=== PATIENT | female | born 1990 | race Caucasian/White ===

== ENCOUNTER 2017-03-16 19:43 | Emergency (ER) | payer OTHER ==
[~2017-03-16] VITALS: Ht 167.6 cm; Wt 52.3 kg
[~2017-03-16 19:43] MED LIST: IBUP-1827 PO; ONDA4TAB9 PO
[2017-03-16 19:53] VITALS: BP 121/88; RESP 20; O2SAT 97
--- NOTE | 2017-03-16 20:34 | DRSVH ---
PROCEDURE: X-RAY NECK SOFT TISSUE ([id number]) INDICATIONS: "bone" in throat TECHNIQUE: 2 views of the neck were acquired. COMPARISON: None. FINDINGS: Airway: The airway appears patent. Soft tissues: Prevertebral soft tissues are normal in thickness. The epiglottis and aryepiglottic f olds appear normal. No soft tissue gas. Bones: No suspicious bony lesions. Visualized cervical spine is normally aligned. IMPRESSION: Normal examination, source of current symptoms is not found. Dictated by: Quan Shaffer M.D. on 03/16/2017 at 20:32 Approved by: Quan Shaffer M.D. on 03/16/2017 at 20:33
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
[2017-03-16] MEDS ORDERED: Ondansetron 2 mg/mL 2 mL Inj IVPUSH PRN (22:35)
[2017-03-16] MEDS ORDERED: Ondansetron 8 mg ODT Tablet PO ONE (22:45)
[2017-03-16] MEDS ORDERED: _Ondansetron ODT 4 mg Tablet PO PRN (23:40)
[2017-03-16] MEDS ORDERED: ONDA8TAB10 PO (23:52)
[2017-03-17] MEDS ORDERED: BENZ200C44 PO (00:03)
[2017-03-17 00:05] VITALS: PULSE 82; RESP 16
--- NOTE | 2017-03-17 08:52 | DRSVH ---
PROCEDURE: X-RAY CHEST, TWO VIEWS ([id number]) INDICATIONS: cough, fever, phlegm TECHNIQUE: 2 views of the chest were acquired. COMPARISON: None. FINDINGS: Surgical changes and devices: None. Lungs and pleura: No pleural effusions or pneumothorax. Lungs are clear. Mediastinum: Mediastinal contours are normal. Heart size is normal. Bones and chest wall: No suspicious bony abnormalities. Soft tissues appear unremarkable. IMPRESSION: No acute cardiopulmonary disease. Dictated by: Terry Roman [facility] Interpreted: Kobly Granger MD on 03/17/2017 at 8:51 Transcribed by: YAYA on 03/17/2017 at 8:52 Approved by: Kolby Granger M.D. on 03/17/2017 at 9:42
== END 2017-03-17 00:06 | disposition home or self-care (01) ==
LOC: SED 19:43
DX: J06.9 Acute upper respiratory infection, unspecified (principal); R09.89 Other specified symptoms and signs involving the circulatory and respiratory systems; R11.10 Vomiting, unspecified; H92.03 Otalgia, bilateral; R61 Generalized hyperhidrosis; R51 Headache; J02.9 Acute pharyngitis, unspecified; Z88.0 Allergy status to penicillin

== ENCOUNTER 2017-06-04 14:31 | Emergency (ER) | payer OTHER ==
[~2017-06-04] VITALS: Ht 15.2 cm; Wt 54.5 kg
[~2017-06-04 14:31] MED LIST changes: +BENZ200C44 PO; +ONDA8TAB10 PO
[2017-06-04 14:38] VITALS: BP 103/74; PULSE 61; RESP 16; O2SAT 100
[2017-06-04 14:50] VITALS: BP 103/74; PULSE 61; RESP 16; O2SAT 100
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
[2017-06-04 15:18] VITALS: BP_SYST 101; BP_SYST 93; BP_DIAS 57; BP_DIAS 61; PULSE 57; PULSE 71
[2017-06-04 15:35] LABS: BASOPHILS % (AUTO) 0.2 % (0-3); EOSINOPHILS % (AUTO) 0.5 % (0-5); MONOCYTES % (AUTO) 4.9 % (4-12); Mean Corpuscular Volume 90.5 fL (81-100); NEUTROPHILS % (AUTO) 73.8 % (40-74); Platelet Count 210 bil/L (150-400)
[2017-06-04 16:28] VITALS: BP 98/62; PULSE 58; RESP 20; O2SAT 100
--- NOTE | 2017-06-04 17:07 | DRSVH ---
PROCEDURE: X-RAY CHEST ONE VIEW ([id number]) INDICATIONS: syncope TECHNIQUE: One view of the chest was acquired. COMPARISON: [facility], Chest X-ray 2 views, 03/16/2017. FINDINGS: Surgical changes and devices: None. Lungs and pleura: No pleural effusions or pneumothorax. Lungs are clear. Mediastinum: Mediastinal contours appear normal. Heart size is normal. Bones and chest wall: No suspicious bony lesions. Overlying soft tissues appear unremarkable. IMPRESSION: No acute cardiopulmonary disease. Dictated by: Harry Tapia M.D. on 06/04/2017 at 17:05 Approved by: Harry Tapia M.D. on 06/04/2017 at 17:05
[2017-06-04 17:18] VITALS: BP 95/60; PULSE 54; O2SAT 99
[2017-06-04 18:55] VITALS: BP 99/64; PULSE 54; RESP 20; O2SAT 99
[2017-06-16] MEDS ORDERED: FLUT15.88 NS (15:11)
[2017-06-16] MEDS ORDERED: PANT40TA3 PO (15:11)
[2017-06-16] MEDS ORDERED: PHEN-877 PO (15:11)
[2017-06-16] MEDS ORDERED: ACET325T51 PO (15:11)
== END 2017-06-04 18:55 | disposition home or self-care (01) ==
LOC: SED 14:31
DX: R55 Syncope and collapse (principal); R42 Dizziness and giddiness; M25.552 Pain in left hip; W18.12XA Fall from or off toilet with subsequent striking against object, initial encounter; Y93.89 Activity, other specified; Y92.002 Bathroom of unspecified non-institutional (private) residence as the place of occurrence of the external cause; Y99.8 Other external cause status; Z98.890 Other specified postprocedural states; Z87.828 Personal history of other (healed) physical injury and trauma; Z88.0 Allergy status to penicillin

== ENCOUNTER 2017-06-20 15:06 | Day surgery (SDC) | payer OTHER ==
[~2017-06-20] VITALS: Ht 170.2 cm; Wt 52.2 kg
[~2017-06-20 15:06] MED LIST changes: +ACET325T51 PO; +FLUT15.88 NS; -ONDA8TAB10 PO; +PANT40TA3 PO; +PHEN-877 PO; +Sodium Chloride LOK Flush 10 mL Syringe IV PRN; +fentaNYL-PF 50 mCg/mL 2 mL Inj IVPUSH PRN
[2017-06-20 15:21] VITALS: BP 113/68; PULSE 54; RESP 16; O2SAT 99
[2017-06-20] MEDS ORDERED: CETI10CA PO (15:23)
[2017-06-20] MEDS: 0.9% Sodium Chloride 1,000 ML IV SCH ×2 (15:30→16:14)
[2017-06-20 16:10] VITALS: BP 104/68; PULSE 68; RESP 14; O2SAT 100
[2017-06-20 16:21] VITALS: BP 99/57; PULSE 65; RESP 14; O2SAT 100
[2017-06-20 16:32] VITALS: BP 112/69; PULSE 59; RESP 14; O2SAT 100
--- NOTE | 2017-06-20 21:58 | ENDO ---
[address] [address] ENDOSCOPY PROCEDURE PATIENT: ELIZABETH OLGUIN : 1990 MR#: [id number] ADMIT: 06/20/2017 JOB ID: [id number] DATE OF SERVICE: 06/20/2017 PRIMARY PROVIDER: Kolby Kirkpatrick DO. PROCEDURE: Esophagogastroduodenoscopy with biopsies. INDICATIONS: A 26-year-old female who reports odynophagia, dysphagia and weight loss of uncertain etiology. Endoscopic interrogation is pursued. EQUIPMENT: GIF H 180 J. SEDATION: 1. 7 mg Versed. 2. 150 mcg fentanyl. COMPLICATIONS: None identified. PROCEDURE IN DETAIL: After the risks and benefits were explained, written and verbal informed consent was obtained. The patient was brought into the endoscopy suite and placed into the left lateral decubitus position. Sedation was achieved as above. The scope was introduced into the mouth through the bite block, and advanced to the second portion of the duodenum. The scope was slowly withdrawn to carefully examine the mucosa for any defects or lesions. Retroflexed views were accomplished in the stomach, the stomach was decompressed, and the scope removed from the patient who tolerated the procedure well. FINDINGS: 1. Duodenum: This appeared visually unremarkable from the bulb through to the second portion. Because of the weight loss and her profound symptoms, I elected to take a couple biopsies for exclusion of celiac. 2. Stomach: No outlet obstruction. No ulcers. No mass lesions. Mild diffuse gastropathy was seen throughout. Random biopsy was taken for exclusion of Helicobacter or any other underlying histopathology. Retroflexed views of the LES were unremarkable. 3. Esophagus: The squamocolumnar junction correlated with the top of the gastric folds. The GE junction was at approximately 38 cm from the incisors. No acute erosive changes. No strictures. No mass lesions. I did not appreciate any classic corrugated appearance throughout the esophagus as is sometimes seen in eosinophilic disease. However, because the patient's symptoms were so profound, we took a random biopsy from the mid esophagus to exclude the presence of eosinophilic infiltration. Throughout the esophagus, I did not appreciate any structural pathology to account for her complaints. ENDOSCOPIC DIAGNOSES: 1. Mild gastropathy. 2. Otherwise visually unremarkable esophagogastroduodenoscopy. RECOMMENDATIONS: 1. Await histopathology. 2. Continue diet as tolerated. 3. If there is evidence of eosinophilic infiltration, then I would recommend a six week course of swallowed fluticasone therapy and a referral to Dr. Jeff Ryder with [facility]. 4. If the esophageal biopsies are entirely unremarkable, then I would recommend pursuit of a 24-hour pH off meds and a manometry.
--- NOTE | 2017-06-22 15:58 | PATH ---
SURGICAL PATHOLOGY Attending Physician:Jhony Mcmahan CASE STATUS: Signed Out PATIENT NAME: ELIZABETH OLGUIN PID: [id number] : 1990 DATE COLLECTED:06/20/2017 00:00 SPECIMEN: 1: Duodenum, Biopsy 2: Gastric, Biopsy 3: Esophagus, Biopsy CLINICAL HISTORY: 1). DUODENAL BIOPSY 2). GASTRIC BIOPSY 3). MID ESOPHAGEAL BIOPSY FINAL DIAGNOSIS: 1.DUODENUM, BIOPSY: DUODENAL MUCOSA WITH NO DIAGNOSTIC ABNORMALITY. Negative for active inflammation, features of sprue, dysplasia, and malignancy.2.STOMACH, BIOPSY:BODY-TYPE MUCOSA WITH NO DIAGNOSTIC ABNORMALITY. Negative for Helicobacter organisms. Negative for intestinal metaplasia. Negative for dysplasia and malignancy. 3.MID ESOPHAGUS, BIOPSY: SQUAMOUS EPITHELIUM WITH NO DIAGNOSTIC ABNORMALITY. Intraepithelial eosinophils are not increased. Negative for dysplasia and malignancy. ICD10 R13.10 GROSS DESCRIPTION: The specimen is received in three formalin filled containers labeled with the patient's name. 1). The specimen is labeled "duodenum" and consists of 3 portions of tissue which aggregate to 0.2 x 0.2 x 0.2 CM. The specimen is entirely submitted in cassette 1A. 2). The specimen is labeled "gastric" and consists of a 0.1 x 0.1 x 0.1 CM portion of tissue which is entirely submitted in cassette 2A. 3). The specimen is labeled "esophagus mid" and consists of a 0.2 x 0.2 x 0.1 CM portion of tissue which is entirely submitted in cassette 3A. 06/21/2017DC MICRO DESCRIPTION: See diagnosis. ICD-9 CODES: CPT CODES: 1: 44349 2: 96172 3: 21756 Electronically Signed Out Hermes Pedro MD, Ph.D. [facility] Pathology [facility] [address], [place] [address] Technical component performed at [facility], [address] [place] [address] Ave[address], [place], [address]
== END 2017-06-20 23:59 | disposition home or self-care (01) ==
LOC: END 15:06
PROVIDERS: ATTEND Internal Medicine Gastroenterology
DX: K31.9 Disease of stomach and duodenum, unspecified (principal); R13.10 Dysphagia, unspecified; K58.0 Irritable bowel syndrome with diarrhea; R63.4 Abnormal weight loss; Z68.1 Body mass index [BMI] 19.9 or less, adult
CPT/HCPCS: 43239; 99152; J2250; J3010; J7030

== ENCOUNTER → 2017-07-26 | Day surgery (SDC) | payer OTHER ==
[~2017-07-26] MED LIST changes: -ACET325T51 PO; -BENZ200C44 PO; +CETI10CA PO; -FLUT15.88 NS; -IBUP-1827 PO; -ONDA4TAB9 PO; -PANT40TA3 PO; -PHEN-877 PO; -Sodium Chloride LOK Flush 10 mL Syringe IV PRN; -fentaNYL-PF 50 mCg/mL 2 mL Inj IVPUSH PRN
== END | disposition home or self-care (01) ==
LOC: END 00:58
PROVIDERS: ATTEND Internal Medicine Gastroenterology
DX: R13.10 Dysphagia, unspecified (principal); Z53.8 Procedure and treatment not carried out for other reasons